=== PATIENT | female | born 1960 | race Caucasian/White ===

== ENCOUNTER → 2023-08-13 15:14 | Outpatient (REF) | payer BC, SELFPAY | LOC: WDC 15:14 | PROVIDERS: ATTENDING PHYSICIAN Family Medicine | DX: Z12.31 Encounter for screening mammogram for malignant neoplasm of breast (principal) | CPT/HCPCS: 77063; 77067 ==

== ENCOUNTER → 2024-06-20 10:52 | Outpatient (REF) | payer BC, SELFPAY | LOC: RAD 10:52 | PROVIDERS: ATTENDING PHYSICIAN Internal Medicine | DX: R73.03 Prediabetes (principal); E78.6 Lipoprotein deficiency; R00.2 Palpitations | CPT/HCPCS: 75571 ==

== ENCOUNTER → 2024-09-05 07:43 | Outpatient (REF) | payer BC, SELFPAY | LOC: WDC 07:43 | PROVIDERS: ATTENDING PHYSICIAN Obstetrics & Gynecology Gynecology; FAMILY PHYSICIAN Internal Medicine | DX: Z12.31 Encounter for screening mammogram for malignant neoplasm of breast (principal) | CPT/HCPCS: 77063; 77067 ==